=== PATIENT | male | born 1975 | race Caucasian/White ===

== ENCOUNTER 2019-10-06 14:35 | Emergency (ER) | payer OTHER ==
[~2019-10-06] VITALS: Ht 167.6 cm; Wt 84.8 kg
[2019-10-06 14:38] VITALS: Ht 167.6 cm; Wt 84.8 kg
[2019-10-06 15:22] LABS: BASOPHIL % 0.5 % (0-2); PLATELET COUNT 312 x10^3mcL (130-400); RED CELL DISTRIBUTION WIDTH 13.1 % (11.5-14.5)
[2019-10-06 15:37] LABS: CALCIUM 8.7 mg/dL (8.5-10.1); CARBON DIOXIDE 28.2 mmol/L (21-32); CHLORIDE SERUM 104 mmol/L (98-107); CREATININE SERUM 1.2 mg/dL (0.7-1.3); GFR1 > 60 mL/min; GLUCOSE SERUM 105 mg/dL (74-106); POTASSIUM SERUM 4.1 mmol/L (3.5-5.1); SODIUM SERUM 139 mmol/L (136-145)
[2019-10-06 17:52] VITALS: BP 129/88
== END 2019-10-06 17:52 | disposition home or self-care (01) ==
LOC: ED 14:35
PROVIDERS: Emergency Medicine
DX: L02.215 Cutaneous abscess of perineum (principal); L03.315 Cellulitis of perineum
CPT/HCPCS: 90715; J0696; J2001; Q9967

== ENCOUNTER 2019-10-08 12:21 | Emergency (ER) | payer OTHER ==
[2019-10-08 12:34] VITALS: Ht 167.6 cm
[2019-10-08 13:09] VITALS: BP 122/84
== END 2019-10-08 13:09 | disposition home or self-care (01) ==
LOC: ED 12:21
DX: S31.82 Open wound of left buttock (principal); X58.XXXD Exposure to other specified factors, subsequent encounter